=== PATIENT | male | born 1990 | race Caucasian/White ===

== ENCOUNTER 2017-06-01 20:15 | Emergency (ER) | payer OTHER ==
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
[2017-06-01 22:05] VITALS: BP 143/96; PULSE 55; RESP 15; TEMP 97.9; O2SAT 95
== END 2017-06-01 22:06 | disposition home or self-care (01) ==
PROC: 0HQ1XZZ Repair Face Skin, External Approach (ICD-10-PCS; principal; 2017-06-01)
DX: S01.81XA Laceration without foreign body of other part of head, initial encounter (principal); S09.90XA Unspecified injury of head, initial encounter; V19.9XXA Pedal cyclist (driver) (passenger) injured in unspecified traffic accident, initial encounter